=== PATIENT | male | born 1965 | race Caucasian/White ===

== ENCOUNTER → 2016-09-11 | Outpatient (CLI) | payer OTHER ==
[~2016-09-11] MED LIST: ATOR-22 PO; BUSPAR PO; CYAN500T13 PO; DOXY100C76 PO; DULO60CA44 PO; IBUP-1050 PO; LISI10TA PO; METFORMIN PO; OMEPRAZOLE PO; OXYC-57 PO; PRLSR20 PO; SERTRALINE PO; TRAZ50TA35 PO
--- NOTE | 2016-09-11 16:38 | DIAGNOSTIC IMAGING REPORT ---
MRI RIGHT FOREFOOT WITHOUT IV CONTRAST CLINICAL HISTORY: Right foot pain. COMPARISON STUDY: No priors TECHNIQUE: MRI of the right forefoot is performed utilizing various T1 and T2-weighted sequences in the axial, sagittal, and coronal planes. IV contrast was not administered for this examination. Note that interpretation is suboptimal without plain film correlate. FINDINGS: Cutaneous markers have been placed overlying the first metatarsophalangeal joint. Mild arthritic change is present at the first MTP joint with mild spurring from the metatarsal head. Foci of marrow edema are present within the first metatarsal head and within the medial base of the first proximal phalanx. There is no MRI evidence of fracture or osteonecrosis. The articular cartilage is not well visualized but appears thinned. No marrow edema is identified within the sesamoids at the first metatarsophalangeal joint. Mild degenerative signal/sclerosis is present involving the plantar surface of both sesamoids. The remaining bony structures of the forefoot demonstrate normal marrow signal intensity. The surrounding soft tissues are within normal limits. The partially imaged flexor and extensor tendons appear intact. The regional muscular is normal in bulk and signal intensity. IMPRESSION: 1. There is mild arthritic change with mild marrow edema seen at the first metatarsophalangeal joint. 2. Mild degenerative change/sclerosis is present along the plantar aspect of both of the sesamoids at the first MTP. There is no associated edema. Plain film correlation is recommended. 3. No additional acute abnormality is seen. Dictated: 09/11/2016 3:44 PM Transcribed: 09/11/2016 4:38 PM Raghav Electronically signed by: Demetrius Goodwin M.D. 09/12/2016 12:41 PM Dictated Date/Time: 09/11/2016 3:44 PM
== END | disposition home or self-care (01) ==
LOC: C.MRI 13:58
PROVIDERS: ATTEND Podiatrist Foot & Ankle Surgery
DX: M20.21 Hallux rigidus, right foot (principal); M89.8X7 Other specified disorders of bone, ankle and foot

== ENCOUNTER 2016-11-11 05:20 | Day surgery (SDC) | payer OTHER ==
--- NOTE | 2016-11-10 11:29 | HISTORY & PHYSICAL EXAMINATION ---
DATE OF ADMISSION: 11/11/2016 HISTORY OF PRESENT ILLNESS: A 51-year-old male presents for preoperative evaluation, requesting surgery due to painful right foot. Condition is located in the right big toe, described as sore and tender. Condition was noted over a year ago. He denies any recent exposure, precipitation, or history for this condition. He notes that gradually over time it became more uncomfortable. Severity is graded as an 8 on a 10-point scale and gradually worsening. Associated signs include stiffness and swelling. He indicates nonsteroidals did not change the condition. Orthotics did not change the condition. He was referred to our office by Dr. Villalobos who had performed conservative treatment for several months, approximately 9 or greater. He referred him here for surgical intervention. He is currently wearing the custom molded orthotic with some improvement, but he notes his pain continues. He is unable to perform daily activities of living and is requesting surgery due to the nature and severity of discomfort. PAST SURGICAL HISTORY: Neck surgery in 2013. PAST MEDICAL HISTORY: Diabetes mellitus, cardiac disease, hyperlipidemia, anxiety disorder, arthritis, back problems, asthma. MEDICATIONS: Doxycycline, Zoloft, lisinopril, Cymbalta, omeprazole. ALLERGIES: TO STEROIDS. FAMILY HISTORY: Arthritis, cancer, high cholesterol, and thyroid disease. SOCIAL HISTORY: The patient admits to alcohol use, drinking described as social. REVIEW OF SYSTEMS: Unremarkable except chief complaint. PHYSICAL EXAMINATION: VITAL SIGNS: BP 134/90, temperature 96.1, height 5 feet 11, weight 220 pounds, body mass index of 31. CONSTITUTIONAL: The patient appears well developed and nourished with good attention to body grooming and habitus. HEAD AND FACE: Head is normocephalic and atraumatic without any gross head, face, or neck masses. EYES: Conjunctival and pupillary reaction to light and accommodation are normal. EARS, NOSE, MOUTH, AND THROAT: Unremarkable. NECK: Neck is supple. Trachea is midline without any adenopathy or crepitance palpable. CARDIOVASCULAR: Normal S1, S2, without murmur, gallops, rubs or clicks noted. RESPIRATORY: Chest is symmetric. No scars are visible. No port or pacemaker. LUNGS: Clear to auscultation bilaterally and equal. GASTROINTESTINAL: Abdominal organs, bladder, and kidneys show no abnormalities, masses, tenderness, or rigidity. LYMPHATIC: No popliteal, inguinal, or supraclavicular lymphadenopathy noted. LOWER EXTREMITY VASCULAR EXAMINATION: DP palpable, PT palpable. Digital hair is present. DERMATOLOGIC: No skin rash, subcutaneous nodules, lesions, or ulcers are observed. NEUROLOGICAL: Touch, pin, vibratory pain, and proprioception sensations are normal. Epicritic sensations are intact. Deep tendon reflexes normal. MUSCULOSKELETAL: Muscle tone is normal. Muscle strength is 5/5 in all groups tested. Inspection and palpation of bones, joints, muscles show his first metatarsophalangeal joint has evidence of an enlarged dorsal medial eminence and range of motion decreased and painful on dorsiflexion and painful on plantarflexion on the right. Examination of the plantar aspect of the first metatarsal reveals pain on palpation and attempted range of motion and antalgic gait. Crepitation noted on attempted range of motion of right first MTPJ. His edema is mild. Ankle brachial index on 10/16/2016, ABIs are normal bilaterally, TBIs are normal bilaterally. No evidence of significant lower extremity artery occlusive disease. Digital toe pressure index 141 on the left third digit and on the left fourth is 111. Digital pressure on the right first is 0.98, on the right second 0.96, on the right third is 1.01, on the right fourth 0.96. MRI of the right foot on 09/11/2016 shows mild arthritic changes present first metatarsophalangeal joint with mild spurring of the metatarsal head. Focal edema present within the first metatarsal head and within the medial base of the proximal phalanx. The articular cartilage is not well visualized but appears to be thinned. Mild degenerative sclerosis is present involving the plantar surface of both sesamoids. IMPRESSION: 1. Hallux valgus, right. 2. Hallux rigidus, right. 3. Sesamoiditis, right first with fibular sesamoid abnormality. 4. Exostosis right fibular sesamoid. 5. Diabetes mellitus. 6. Difficulty walking. Pain lower extremity and the right first digit. PLAN: I discussed mechanical and congenital etiology of the patient's deformity. Conservative treatment consists of: 1. Extra depth shoes. 2. Accommodative padding. 3. Palliative debridement. 4. Steroid injection. 5. Nonsteroidals. 6. Orthotics. Surgical procedures to be performed: 1. Modified Olsen excision partial versus total of the fibular sesamoid, right first MTPJ. 2. Cheilectomy, right first MTPJ. 3. Plantar flexion metatarsal osteotomy, right first MTPJ. 4. Possible cartilage repair, right first MTPJ. This will be performed under general anesthesia as an outpatient at the surgery center. Procedure, risks and complications were fully reviewed with the patient, and consent form, foot diagram, and illustration reviewed in all their entirety. All the patient's questions were answered. Complications were discussed in detail with the patient including pain, infection, swelling that may or may not be excessive, pins and needles feeling, numbness, metatarsalgia, excessive bleeding, delay or nonhealing of bone, delay or nonhealing of skin, enlarged scar, failure of the procedure, reoccurrence or worsening condition which may or may not require further surgery, adverse reaction to anesthesia, allergic reaction to suture or other implant material, loss of toe, foot, or leg, flail toe, stiff toe, short toe, elevated toe, transfer lesion or callus, peripheral neurovascular complications such as phlebitis, damage to nerves or vascular structures, significant chronic pain, chronic nerve pain or damage, general medical complications. The patient will be required to be in a surgery shoe for a minimum of 6-8 weeks and not return to dress shoe for 10-12 weeks depending on postop edema. The patient is aware this is an elective type procedure and I recommend a second opinion. The patient stated they understood. Consent form was signed with a copy of the foot diagram issued to the patient. Verbal and written postop instructions were given. The patient will return to the office for postop check or sooner if medically necessary. Instructed to keep the dressing clean, dry, and intact until seen at the office. JAREN
[~2016-11-11] VITALS: Ht 180.3 cm; Wt 100.0 kg
[~2016-11-11 05:20] MED LIST changes: -METFORMIN PO; -OMEPRAZOLE PO; -OXYC-57 PO; -SERTRALINE PO
[2016-11-11 05:41] VITALS: BP 133/85; PULSE 71; TEMP 36.4; O2SAT 95; Ht 180.3 cm; Wt 100.0 kg
[2016-11-11] MEDS ORDERED: SODIUM CHLORIDE 0.9% 1000ML 1,000 ML IV SCH ×2 (06:00→06:51)
[2016-11-11] MEDS ORDERED: CEFAZOLIN 2000 MG/60 ML D5W IV SCH (06:00)
[2016-11-11] MEDS ORDERED: LACTATED RINGER'S 1000ML 1,000 ML IV SCH (06:00)
[2016-11-11] MEDS ORDERED: ROPIVACAINE 0.5% 5 MG/ML 30 ML VIAL ONE (06:31)
--- NOTE | 2016-11-11 06:52 | History & Physical Bridge Note ---
H&P Re-Evaluation Bridge Note: I have examined the patient, reviewed the History & Physical and in the interval since the performance of the History & Physical I have noted the following changes of clinical significance: No changes noted
--- NOTE | 2016-11-11 06:55 | Discharge Instructions ---
Discharge Instructions Date of Service Nov 11, 2016. Admission Reason for Admission: Sesamoiditis Right 1ST Metatarsal Joint Discharge Discharge Diagnosis / Problem: same as above Discharge Goals Goal(s): Decrease discomfort Activity Recommendations Activity Limitations: as noted below Medications: * Resume previous medications unless instructed by your surgeon. * Take your medications as prescribed. Call our office ([phone]) at any time, if you experience severe pain that does not subside shortly after taking your pain medication. Activity: * Do not put any standing weight on your operated foot/ankle. Use the crutches or walker as instructed. Special Care: * Keep your bandage clean and dry. Do not remove your bandage unless otherwise instructed. A small amount of blood may appear on the bandage over the surgical site. Call our office ([phone]) if you bandage becomes blood-soaked or wet. * Elevate your operated foot/ankle on pillows, above the level of your heart, as often as possible during the first 2-3 days following surgery. Keep your knee flexed slightly with a pillow under your knee when you elevate your foot/ankle. * Apply a ice bag to your foot/ankle over the operative site for 20-30 minutes out of each hour while you are awake. Do not allow the ice bag to directly contact bare skin. * Avoid bumping or handling any pins visible in your toes. If any pin feels or appears loose, call the office ([phone]). * Take your oral temperature in the morning and at bedtime. Call our office ([phone]) if your temperature rises above 101 degrees Fahrenheit. Call your surgeon's office at ([phone]) for any problems or concerns such as excessive bleeding and/or pain unrelieved by your prescribed pain medications. If you have any questions, please do not hesitate to ask them. Avoid all tobacco products. If you need help to stop smoking, call [place] FREE QUITLINE at . This is a free call. Follow-up: Follow-up with Dr. Reyes . Instructions / Follow-Up Instructions / Follow-Up Medications: * Resume previous medications unless instructed by your surgeon. * Take your medications as prescribed. Call our office ([phone]) at any time, if you experience severe pain that does not subside shortly after taking your pain medication. Activity: * Do not put any standing weight on your operated foot/ankle. Use the crutches or walker as instructed. Special Care: * Keep your bandage clean and dry. Do not remove your bandage unless otherwise instructed. A small amount of blood may appear on the bandage over the surgical site. Call our office ([phone]) if you bandage becomes blood-soaked or wet. * Elevate your operated foot/ankle on pillows, above the level of your heart, as often as possible during the first 2-3 days following surgery. Keep your knee flexed slightly with a pillow under your knee when you elevate your foot/ankle. * Apply a ice bag to your foot/ankle over the operative site for 20-30 minutes out of each hour while you are awake. Do not allow the ice bag to directly contact bare skin. * Avoid bumping or handling any pins visible in your toes. If any pin feels or appears loose, call the office ([phone]). * Take your oral temperature in the morning and at bedtime. Call our office ([phone]) if your temperature rises above 101 degrees Fahrenheit. Call your surgeon's office at ([phone]) for any problems or concerns such as excessive bleeding and/or pain unrelieved by your prescribed pain medications. If you have any questions, please do not hesitate to ask them. Avoid all tobacco products. If you need help to stop smoking, call [place] FREE QUITLINE at . This is a free call. Follow-up: Follow-up with Dr. Reyes Current Hospital Diet Patient's current hospital diet: Discharge Diet Recommended Diet: Diabetes Type 2 Diet Pending Studies Studies pending at discharge: no Medical Emergencies . Who to Call and When: Medical Emergencies: If at any time you feel your situation is an emergency, please call [phone] immediately. . Non-Emergent Contact Non-Emergency issues call your: Primary Care Provider . "Provider Documentation" section prepared by Mansi Hagen. VTE Core Measure Inpt VTE Proph given/why not?: Contraindicated
[2016-11-11] MEDS ORDERED: FENTANYL CITRATE INJ 50 MCG/1 ML 2 ML VIAL ONE (07:03)
[2016-11-11] MEDS ORDERED: MIDAZOLAM HCL 1 MG/ML 2ML VIAL ONE (07:03)
[2016-11-11] MEDS ORDERED: BUPIVACAINE 0.5 % 5 MG/1 ML MPF 30ML VIAL ONE (07:07)
[2016-11-11] MEDS ORDERED: ATROPINE SULFATE 0.1 MG/ML 5ML SYR IV PRN (07:45)
[2016-11-11] MEDS ORDERED: EpHEDrine SULFATE INJ 50 MG/ML AMP IV PRN (07:45)
[2016-11-11] MEDS ORDERED: FENTANYL CITRATE INJ 50 MCG/1 ML 2 ML VIAL IV PRN (07:45)
[2016-11-11] MEDS ORDERED: ONDANSETRON INJ 2 MG/ML 2 ML VIAL IV PRN (07:45)
[2016-11-11] MEDS ORDERED: HYDROmorphone INJ 1 MG/ML SYR IV PRN (07:45)
[2016-11-11] MEDS ORDERED: TISSEEL FIBRIN SEALANT 4ML TOP ONE (08:15)
[2016-11-11] MEDS ORDERED: ONDANSETRON INJ 2 MG/ML 2 ML VIAL ONE (08:19)
[2016-11-11] MEDS ORDERED: DEXAMETHASONE SOD INJ 4 MG/ML VIAL ONE (08:19)
[2016-11-11] MEDS ORDERED: EpHEDrine SULFATE 50MG/5ML SYR ONE (08:19)
[2016-11-11] MEDS ORDERED: PROPOFOL IV EMULSION 10 MG/ML 20 ML VIAL IV ONE (08:19)
[2016-11-11] MEDS ORDERED: LIDOCAINE HCL 2% 2 ML VIAL (20MG/ML) ONE (08:19)
[2016-11-11] MEDS ORDERED: PHENYLEPHRINE 100MCG/ML 5ML SYR ONE (08:19)
--- NOTE | 2016-11-11 09:36 | OPERATIVE REPORT ---
DATE OF OPERATION: 11/11/2016 PREOPERATIVE DIAGNOSES: 1. Sesamoiditis fibular sesamoid. 2. Questionable old fracture hallux valgus right first metatarsophalangeal joint. 3. Hallux rigidus, right first metatarsophalangeal joint. 4. Pain. POSTOPERATIVE DIAGNOSES: Same. PROCEDURES: 1. Modified Olsen with excision of fibular sesamoid, right first MTPJ. 2. Cheilectomy, right first MTPJ. 3. Cartilage repair, right first metatarsal. 4. Distal plantar flexor metatarsal osteotomy. SURGEON: Dr. Reyes. ANESTHESIA: General with regional field block performed by anesthesia. HEMOSTASIS: Pneumatic ankle tourniquet inflated to a level of 250 mmHg for a total tourniquet time of 73 minutes. ESTIMATED BLOOD LOSS: Minimal. MATERIALS: 2-0, 3-0 Vicryl, 4-0 nylon, 2.7 screws from [employer] measuring 16 mm and 16 mm. INJECTIONS: None. FINDINGS: Essential plantar medial cartilage defect first metatarsal, hypertrophied bone around the first MTPJ leading to extensive exostosis on the first metatarsal. COMPLICATIONS: None. The patient tolerated the procedure and anesthesia well without complications, transferred to recovery room with vital signs stable and neurovascular status intact. OPERATION AND FINDINGS: PROCEDURE: The patient was brought to the OR and placed on the OR table in supine position. Upon completion of general anesthesia by the anesthesia department, a local field block was performed by the anesthesia department in the preoperative holding area. The extremity was scrubbed, prepped and draped in the usual aseptic fashion. Attention was directed to the right first MTPJ where a linear incision was made just medial to tendon extensor hallucis longus. Dissection was carried down to the level of capsular structures. Lateral aspect of the joint was released with a fibular sesamoid. Small amount of bone had to be removed to get to the fibular sesamoid on the lateral aspect of the joint with a sagittal saw. Also, extensive amount of bone was removed dorsally as well. Fibular sesamoid was removed in total in pieces over the lateral aspect of the joint. Questionable old fracture versus arthritic changes around the area. This was visualized using a C-arm to make sure that the entire sesamoid was excised which it was. The wound was copiously lavaged with normal saline. The leg was repositioned. Osteotomy was created in the first metatarsal with a slightly longer dorsal arm. [place] was dorsal medial to plantar lateral in order to plantarflex. The capital fragment transposed in lateral aspect and temporarily fixated with K-wires, two 2.7 screws were placed parallel to each other, fixating the osteotomy which was found to be quite stable. The wound was copiously lavaged with normal saline. At this time BioCartilage was used over the first metatarsal and sealed. This was left intact for 5 minutes prior to putting through range of motion. The wounds were copiously lavaged. Closure began of the deep structures using 2-0 Vicryl in a simple interrupted fashion. Superficial deep structures closed with 3-0 Vicryl in a box stitch technique. Skin margins closed with 4-0 nylon interspersed with 5-0 PDS. Films were taken postoperatively. The patient tolerated the procedure and anesthesia well without complications, transferred to recovery room with vital signs stable and neurovascular status intact. I attest to the content of the Intraoperative Record and any orders documented therein. Any exceptions are noted below. GISELLD
--- NOTE | 2016-11-11 09:39 | DIAGNOSTIC IMAGING REPORT ---
RIGHT FOOT 2 VIEWS CLINICAL HISTORY: SESAMOID EXCISION Right Fluoroscopy time: 8 seconds. 2 fluoroscopic spot image. FINDINGS: There are 2 screws at the first metatarsal osteotomy. The hardware appears intact. The alignment is near-anatomic. IMPRESSION: Fluoroscopy provided for osteotomy within the first metatarsal. Electronically signed by: Jacob Soares M.D. 11/11/2016 9:37 AM Dictated Date/Time: 11/11/2016 9:36 AM
[2016-11-11 10:10] VITALS: BP 108/75; PULSE 75; TEMP 37.1; O2SAT 95
--- NOTE | 2016-11-11 10:12 | Anesthesiology Progress Note ---
Anesthesia Post Op Note Date & Time Nov 11, 2016 at 10:11 Vital Signs Pain Intensity: 0 Vital Signs Past 12 Hours Date Time Temp Pulse Resp B/P Pulse Ox O2 Delivery O2 Flow Rate FiO2 11/11/16 10:01 78 18 95 11/11/16 10:01 78 18 11/11/16 10:00 108/75 11/11/16 09:56 77 13 11/11/16 09:56 78 13 93 11/11/16 09:55 118/73 11/11/16 09:51 81 21 11/11/16 09:51 80 21 93 11/11/16 09:50 102/76 11/11/16 09:47 111/79 11/11/16 09:46 75 14 11/11/16 09:46 74 14 89 11/11/16 09:44 36.2 79 16 118/73 94 Room Air 11/11/16 09:41 87 15 11/11/16 09:41 89 15 81/73 93 11/11/16 09:36 90 15 11/11/16 09:36 89 15 93 11/11/16 09:35 116/60 11/11/16 09:31 74 13 98 11/11/16 09:31 76 13 11/11/16 09:30 100/73 11/11/16 09:26 75 10 95 11/11/16 09:26 76 10 11/11/16 09:25 101/67 11/11/16 09:21 77 12 11/11/16 09:21 77 12 94 11/11/16 09:20 75 14 120/60 94 11/11/16 09:20 76 14 11/11/16 09:15 76 11 109/63 94 11/11/16 09:15 75 11 11/11/16 09:10 36.2 74 16 108/67 95 Mask 10 11/11/16 09:10 75 16 108/67 95 11/11/16 09:10 75 16 11/11/16 05:41 36.4 71 20 133/85 95 Room Air Notes Mental Status: alert / awake / arousable, participated in evaluation Pt Amnestic to Procedure: Yes Nausea / Vomiting: adequately controlled Pain: adequately controlled Airway Patency, RR, SpO2: stable & adequate BP & HR: stable & adequate Hydration State: stable & adequate Anesthetic Complications: no major complications apparent
[2016-11-11 10:40] VITALS: BP 112/75; PULSE 83; TEMP 37.1; O2SAT 96
== END 2016-11-11 11:30 | disposition home or self-care (01) ==
LOC: C.ACU 05:20
PROVIDERS: ATTEND Podiatrist Foot & Ankle Surgery
DX: M20.11 Hallux valgus (acquired), right foot (principal); M20.21 Hallux rigidus, right foot; M25.871 Other specified joint disorders, right ankle and foot; M85.871 Other specified disorders of bone density and structure, right ankle and foot; E11.9 Type 2 diabetes mellitus without complications; I10 Essential (primary) hypertension; E78.00 Pure hypercholesterolemia, unspecified; R00.2 Palpitations; J45.909 Unspecified asthma, uncomplicated; F41.9 Anxiety disorder, unspecified; F32.9 Major depressive disorder, single episode, unspecified; M19.90 Unspecified osteoarthritis, unspecified site; K21.9 Gastro-esophageal reflux disease without esophagitis; K44.9 Diaphragmatic hernia without obstruction or gangrene; E66.9 Obesity, unspecified; Z98.1 Arthrodesis status; Z88.8 Allergy status to other drugs, medicaments and biological substances; H40.9 Unspecified glaucoma